=== PATIENT | male | born 1955 | race Caucasian/White ===

== ENCOUNTER 2018-09-20 11:03 | Emergency (ER) | payer OTHER ==
[2018-09-20 11:07] VITALS: BP 129/75; PULSE 70; RESP 18; TEMP 97.8
[2018-09-20] MEDS ORDERED: HYDROcodone/APAP 7.5-325MG 1 EACH TAB PO ONE (11:16)
--- NOTE | 2018-09-20 11:19 | ED ---
Back Pain HPI - General Chief Complaint: Back Pain/Injury Stated Complaint: fall/back pain Time Seen by Provider: 09/20/18 11:10 Source: patient, RN notes reviewed Limitations: no limitations - History of Present Illness Initial Comments: This a 62-year-old male presents emergency Department with chief complaint of left-sided rib pain. Patient states his happened on Thursday night. Patient states that he is a diabetic states he had a hypoglycemic event and states he fell. Patient was evaluated by EMS and signed off. Patient had no complaints since other than left-sided rib pain which has worsened. Patient states is worse with deep inspiration and movement. Denies any headache no head injury no neck pain or midline back pain. Patient states that he's had no bruising he has no abdominal pain and no other extremity injuries. - Related Data Home Medications Medication Instructions Recorded Confirmed Aspirin 81 mg PO Q48H 06/27/15 09/20/18 INSULIN LISPRO (HumaLOG) [HumaLOG] See Protocol SQ ACHS 06/27/15 09/20/18 Multivitamin [Men's Multi-Vitamin] 1 tab PO DAILY 06/27/15 09/20/18 Alpha Lipoic Acid 50 mg PO DAILY 09/20/18 09/20/18 Ascorbic Acid [Vitamin C] 500 mg PO DAILY 09/20/18 09/20/18 Echinacea 500 mg PO DAILY 09/20/18 09/20/18 Insulin Glargine,Hum.rec.anlog 28 units SQ HS 09/20/18 09/20/18 [Toujeo Solostar] Rosuvastatin [Crestor] 20 mg PO HS 09/20/18 09/20/18 Ubidecarenone [Co Q-10] 100 mg PO DAILY 09/20/18 09/20/18 Previous Rx's Medication Instructions Recorded HYDROcodone/APAP 7.5-325MG [[place] 1 tab PO Q6HR PRN 3 Days #12 tab 09/20/18 7.5-325] Allergies Allergy/AdvReac Type Severity Reaction Status Date / Time No Known Allergies Allergy Verified 09/20/18 11:50 Review of Systems ROS Statement: Those systems with pertinent positive or pertinent negative responses have been documented in the HPI. ROS Other: All systems not noted in ROS Statement are negative. Past Medical History Past Medical History: Diabetes Mellitus, Osteoarthritis (OA) Additional Past Medical History / Comment(s): TYPE 1 History of Any Multi-Drug Resistant Organisms: None Reported Additional Past Surgical History / Comment(s): COLONOSCOPY Past Anesthesia/Blood Transfusion Reactions: No Reported Reaction Past Psychological History: No Psychological Hx Reported Smoking Status: Current some day smoker Past Alcohol Use History: Daily Past Drug Use History: None Reported - Past Family History Mother Family Medical History: No Reported History General Exam Limitations: no limitations General appearance: alert, in no apparent distress Head exam: Present: atraumatic, normocephalic, normal inspection Eye exam: Present: normal appearance, PERRL, EOMI. Absent: scleral icterus, conjunctival injection, periorbital swelling ENT exam: Present: normal exam, normal oropharynx, mucous membranes moist Neck exam: Present: normal inspection, full ROM. Absent: tenderness, meningismus, lymphadenopathy Respiratory exam: Present: normal lung sounds bilaterally, chest wall tenderness (Moderate left lateral to posterior rib tenderness). Absent: respiratory distress, wheezes, rales, rhonchi, stridor Cardiovascular Exam: Present: regular rate, normal rhythm, normal heart sounds. Absent: systolic murmur, diastolic murmur, rubs, gallop, clicks GI/Abdominal exam: Present: soft, normal bowel sounds. Absent: distended, tenderness, guarding, rebound, rigid Extremities exam: Present: normal inspection, full ROM, normal capillary refill. Absent: tenderness, pedal edema, joint swelling, calf tenderness Back exam: Present: normal inspection, full ROM. Absent: tenderness (No vertebral tenderness), paraspinal tenderness, vertebral tenderness Neurological exam: Present: alert, oriented X3, CN II-XII intact, reflexes normal. Absent: motor sensory deficit Skin exam: Present: warm, dry, intact, normal color. Absent: rash Course Vital Signs 09/20/18 11:04 Temperature 97.8 F Pulse Rate 70 Respiratory 18 Rate Blood Pressure 129/75 O2 Sat by Pulse 99 Oximetry Medical Decision Making - Medical Decision Making 62-year-old male presented for a fall, left-sided rib pain. Patient's symptoms are consistent with a clinical rib fracture. No obvious displaced rib fracture or pneumothorax on x-ray. Patient be discharged. Return parameters were discussed. Disposition Clinical Impression: Fall, Rib fracture Disposition: HOME SELF-CARE Condition: Stable Instructions (If sedation given, give patient instructions): Rib Fracture (ED) Additional Instructions: Please return to the Emergency Department if symptoms worsen or any other concerns. Prescriptions: HYDROcodone/APAP 7.5-325MG [[place] 7.5-325] 1 tab PO Q6HR PRN 3 Days #12 tab PRN Reason: Pain Is patient prescribed a controlled substance at d/c from ED?: Yes When asked, does pt state using other controlled substances?: Yes If prescribed controlled substance>3 days was MAPS reviewed?: Prescribed <3 Days If opioid is for acute pain is fill amount 7 days or less?: Yes If Rx opioid, was Start Talking consent form obtained?: Yes Referrals: Berry Stephens MD [Primary Care Provider] - 1-2 days Time of Disposition: 12:07
--- NOTE | 2018-09-20 11:49 | XR ---
EXAMINATION TYPE: PA chest and left rib series DATE OF EXAM: 09/20/2018 Comparison: None Clinical History: 62-year-old male Pain Findings: The cardiomediastinal silhouette, aorta, and pulmonary vasculature are within normal limits. Lungs and pleural spaces are clear. No displaced left rib fracture seen. Impression: No acute cardiopulmonary process. No displaced left rib fracture seen.
== END 2018-09-20 12:12 | disposition home or self-care (01) ==
LOC: EC 11:03
DX: R07.81 Pleurodynia (principal); E10.9 Type 1 diabetes mellitus without complications; F17.200 Nicotine dependence, unspecified, uncomplicated; Z79.82 Long term (current) use of aspirin; Z79.4 Long term (current) use of insulin; Z79.899 Other long term (current) drug therapy
CPT/HCPCS: 99283

== ENCOUNTER 2022-05-23 07:56 | Day surgery (SDC) | payer OTHER, MEDICARE ==
[2022-05-23] MEDS: LACTATED RINGERS 1,000 ML IV SCH ×2 (08:25→09:00)
[2022-05-23 08:32] VITALS: TEMP 98
[2022-05-23 08:37] LABS: Glucose,Whole Blood 188 mg/dL (70-110)
[2022-05-23] MEDS ORDERED: PROPOFOL 10 MG/ML 20 ML VIAL IV ONE (09:01)
[2022-05-23] MEDS ORDERED: LIDOCAINE 2% INJ 20 MG/ML (2 ML VIAL) ONE (09:01)
--- NOTE | 2022-05-23 09:31 | P.PCN ---
Date of Procedure: 05/23/22 Procedure(s) Performed: BRIEF HISTORY: Patient is a 66-year-old pleasant white male scheduled for an elective colonoscopy as a part of screening for colon cancer/polyps cologuard. PROCEDURE PERFORMED: Colonoscopywith snare polypectomy. PREOPERATIVE DIAGNOSIS: screening for colon cancer/positive cologuard. IV sedation per Anesthesia. PROCEDURE: After informed consent was obtained, the patient, was brought into the endoscopy unit. IV sedation was administered by Anesthesia under continuous monitoring. Digital rectal examination was normal. Initially the Olympus CF-160 flexible video colonoscope was then inserted in the rectum, gradually advanced into the cecum without any difficulty. Careful examination was performed as the scope was gradually being withdrawn. Ileocecal valve and the appendiceal orifice were visualized and appeared normal. Prep was excellent. Mucosa of the cecum, ascending colon,appeared normal. In the transverse colon there were 2 polyps measuring between 5 and 6 mm in size removed by snare polypectomy. In the sigmoid colon there was a 7-8 polyps measuring between 3-6 mm in size removed by snare polypectomy. Rest of the transverse colon, descending colon, sigmoid colon, and rectum appeared normal. Retroflexion was performed in the rectum and no lesions were seen. The patient tolerated the procedure well. IMPRESSION: 5 mm and 6 mm transverse colon polyp status post polypectomy 7-8 polyps noted in the sigmoid colon measuring between 3-6 mm in size removed by snare polypectomy RECOMMENDATIONS: Findings of this examination were discussed with the patient as well as his family. He was advised to follow with the biopsy results. If the biopsy reveals adenoma he can have a repeat colonoscopy in 3 years.
[2022-05-23 09:36] VITALS: RESP 16
[2022-05-23 09:52] VITALS: BP 141/78; PULSE 67
== END 2022-05-23 10:24 | disposition home or self-care (01) ==
LOC: ORWHC2ENDO 07:56
PROVIDERS: ATTEND Internal Medicine Gastroenterology
DX: D12.3 Benign neoplasm of transverse colon (principal); D12.5 Benign neoplasm of sigmoid colon
CPT/HCPCS: 45385; J2704; J2001; 88305